=== PATIENT | female | born 1975 | race African-American/Black ===

== ENCOUNTER 2017-11-30 04:57 | Emergency (ER) | payer SELFPAY, OTHER ==
[2017-11-30 05:45] LABS: BILIRUBIN, URINE NEG (NEG); BLOOD, URINE MOD (NEG); COMMENT (UR) CULTURE INDICATED; CULTURE IF INDICATED CULTURE INDICATED; GLUCOSE,URINE NEG (NEG); KETONE, URINE NEG (NEG); NITRITE,URINE NEG (NEG); URINE LEUKOCYTE ESTERASE NEG (NEG)
[2017-11-30 05:46] LABS: URINE COLOR RED (YELLW/STRAW)
[2017-11-30] MEDS: PHENAZOPYRIDINE HCL 200 MG TAB PO (05:57)
[2017-11-30] MEDS: CEPHALEXIN MONOHYDRATE 500 MG CAP PO (05:57)
== END 2017-11-30 06:23 | disposition home or self-care (01) ==
LOC: NEPE 04:57
DX: N30.81 Other cystitis with hematuria (principal); N89.8 Other specified noninflammatory disorders of vagina; B96.20 Unspecified Escherichia coli [E. coli] as the cause of diseases classified elsewhere; Z79.899 Other long term (current) drug therapy; Z88.0 Allergy status to penicillin
CPT/HCPCS: 81001; 84703; 87077; 87086; 87186; 99284

== ENCOUNTER 2018-02-18 23:13 | Emergency (ER) | payer SELFPAY ==
[~2018-02-18] VITALS: Ht 165.1 cm; Wt 52.8 kg
[~2018-02-18 23:13] MED LIST: CEPH-460 PO; DICL75 PO; MAXA10TA2 PO; NORV2.5T11 PO; PHEN0.4T PO
[2018-02-18 23:27] VITALS: BP 148/90; PULSE 60; RESP 16; TEMP 98.3; O2SAT 100
[2018-02-19] MEDS ORDERED: MECLIZINE HCL 25 MG TAB PO ONE (00:15)
[2018-02-19] MEDS ORDERED: SODIUM CHLORIDE 0.9% FLUSH 10 ML FLUSH IV FLUSH PRN (00:15)
--- NOTE | 2018-02-19 00:20 | PD ---
HPI Chief Complaint: Dizziness Time Seen by Provider: 00:01 Travel History International Travel<30 days: No Contact w/Intl Traveler<30days: No Traveled to known affect area: No History of Present Illness HPI 42-year-old female here for evaluation of dizziness. The patient reports that at around 10:30 PM he began feeling dizzy. She reports feeling s as though she is spinning. This is made worse with movements and standing up, improved with laying still and closing her eyes. No headache. No paresthesias or motor deficits. No visual disturbances. No melena or hematochezia. No fevers or recent illness. No urinary symptoms. Family is concerned because she started a plant-based diet in June of last year and believes that this is why she is having her symptoms today. PFS Past Medical History Anxiety: Yes Cardiovascular Problems: Yes Diminished Hearing: No Headaches: Yes Hypertension: Yes Immunizations Current: Yes Migraines: Yes Tetanus Vaccination: Unknown Influenza Vaccination: No ?: Not LMP: 02/01/2018 : 0 Past Surgical History Gynecologic Surgery: Yes (PART OF THE CERVIX) Other Surgery: Yes (LUMPECTOMY RIGHT BREAST- BENIGN) Family History Family Myocardial Infarction: Yes (mother) Social History Alcohol Use: No Tobacco Use: No Substance Use: No Allergies-Medications (Allergen,Severity, Reaction): Coded Allergies: penicillin G (Unverified Allergy, Severe, 02/18/18) Reported Meds & Prescriptions Reported Meds & Active Scripts Active Pyridium (Phenazopyridine HCl) 100 Mg Tab 100 Mg PO Q8H PRN Keflex (Cephalexin) 500 Mg Cap 500 Mg PO Q8H Diclofenac Sodium Dr (Diclofenac Sod) 75 Mg Tab 75 Mg PO BID Maxalt (Rizatriptan Benzoate) 10 Mg Tab 10 Mg PO DAILYPRN FOR HEADACHE (MAXIMUM DOSAGE EQUALS 30 MG/24 HOURS) Reported Norvasc (Amlodipine Besylate) 2.5 Mg Tab 2.5 Mg PO DAILY Review of Systems Except as stated in HPI: all other systems reviewed are Neg Physical Exam Narrative GENERAL: Well-developed, well-nourished, comfortable, no acute distress. SKIN: Focused skin assessment warm/dry. HEAD: Atraumatic. Normocephalic. EYES: Pupils equal, round, 3 mm, reactive to light. EOMI. Horizontal nystagmus. No scleral icterus. No injection or drainage. ENT: No nasal bleeding or discharge. Mucous membranes pink and moist. Bilateral tympanic membrane's and external auditory canals are normal. NECK: Trachea midline. No JVD. No nuchal rigidity. CARDIOVASCULAR: Regular rate and rhythm. RESPIRATORY: No accessory muscle use. Clear to auscultation. Breath sounds equal bilaterally. GASTROINTESTINAL: Abdomen soft, non-tender, nondistended. Hepatic and splenic margins not palpable. MUSCULOSKELETAL: No obvious deformities. No clubbing. No cyanosis. No edema. NEUROLOGICAL: Awake and alert. No obvious cranial nerve deficits. Motor grossly within normal limits. Normal speech. PSYCHIATRIC: Appropriate mood and affect; insight and judgment normal. Data Data Last Documented VS Vital Signs Date Time Temp Pulse Resp B/P (MAP) Pulse Ox O2 Delivery O2 Flow Rate FiO2 02/19/18 00:21 98 Room Air 02/18/18 23:27 98.3 60 16 148/90 (109) Orders Orders Complete Blood Count With Diff (02/19/18 00:04) Comprehensive Metabolic Panel (02/19/18 00:04) Prothrombin Time / Inr (Pt) (02/19/18 00:04) Act Partial Throm Time (Ptt) (02/19/18 00:04) Urinalysis - C+S If Indicated (02/19/18 00:04) Iv Access Insert/Monitor (02/19/18 00:04) Ecg Monitoring (02/19/18 00:04) Oximetry (02/19/18 00:04) Sodium Chloride 0.9% Flush (Ns Flush) (02/19/18 00:15) Electrocardiogram (02/19/18 00:04) Ct Brain W/O Iv Contrast(Rout) (02/19/18 ) Ed Urine Pregnancytest Poc (02/19/18 00:04) Meclizine (Antivert) (02/19/18 00:15) Labs Laboratory Tests Test 02/19/18 00:26 White Blood Count 5.4 TH/MM3 Red Blood Count 3.49 MIL/MM3 Hemoglobin 11.9 GM/DL Hematocrit 33.9 % Mean Corpuscular Volume 97.1 FL Mean Corpuscular Hemoglobin 34.2 PG Mean Corpuscular Hemoglobin Concent 35.2 % Red Cell Distribution Width 12.5 % Platelet Count 176 TH/MM3 Mean Platelet Volume 9.4 FL Neutrophils (%) (Auto) 64.5 % Lymphocytes (%) (Auto) 28.1 % Monocytes (%) (Auto) 6.5 % Eosinophils (%) (Auto) 0.4 % Basophils (%) (Auto) 0.5 % Neutrophils # (Auto) 3.5 TH/MM3 Lymphocytes # (Auto) 1.5 TH/MM3 Monocytes # (Auto) 0.4 TH/MM3 Eosinophils # (Auto) 0.0 TH/MM3 Basophils # (Auto) 0.0 TH/MM3 CBC Comment DIFF FINAL Differential Comment Prothrombin Time 10.4 SEC Prothromb Time International Ratio 1.0 RATIO Activated Partial Thromboplast Time 24.5 SEC Urine Color YELLOW Urine Turbidity CLEAR Urine pH 8.5 Urine Specific Collins 1.012 Urine Protein TRACE mg/dL Urine Glucose (UA) NEG mg/dL Urine Ketones NEG mg/dL Urine Occult Blood NEG Urine Nitrite NEG Urine Bilirubin NEG Urine Urobilinogen LESS THAN 2.0 MG/DL Urine Leukocyte Esterase NEG Urine RBC LESS THAN 1 /hpf Urine WBC LESS THAN 1 /hpf Urine Squamous Epithelial Cells 1 /hpf Microscopic Urinalysis Comment CULT NOT INDICATED Blood Urea Nitrogen 7 MG/DL Creatinine 0.76 MG/DL Random Glucose 76 MG/DL Total Protein 6.4 GM/DL Albumin 3.6 GM/DL Calcium Level 8.2 MG/DL Alkaline Phosphatase 93 U/L Aspartate Amino Transf (AST/SGOT) 17 U/L Alanine Aminotransferase (ALT/SGPT) 18 U/L Total Bilirubin 0.5 MG/DL Sodium Level 143 MEQ/L Potassium Level 3.8 MEQ/L Chloride Level 110 MEQ/L Carbon Dioxide Level 30.2 MEQ/L Anion Gap 3 MEQ/L Estimat Glomerular Filtration Rate 102 ML/MIN [facility] Medical Decision Making Medical Screen Exam Complete: Yes Emergency Medical Condition: Yes Interpretation(s) EKG: Sinus, rate 61, normal axis, normal intervals, no acute ischemic abnormality. Differential Diagnosis Vertigo: Likely benign, intracranial abnormality, metabolic abnormality, anemia , UTI Narrative Course Vital signs reviewed. CBC: WBC 5.4, hemoglobin 11.9, hematocrit 33.9, platelets 176. CMP is unremarkable. Urine is negative. UA is not suggestive of UTI. CT head: CONCLUSION: No acute intracranial disease. Patient was made aware of all findings. She was given a dose of meclizine with resolution of her dizziness. Her symptoms sound like benign positional vertigo. She is stable for discharge home with outpatient follow-up with a primary care physician this week. She was advised on when to return to the emergency department. She verbalizes understanding and agreement with plan. Diagnosis Primary Impression: Vertigo Referrals: [facility] 3 days Primary Care Physician 3 days Additional Instructions: Follow-up with a primary care physician this week. Return to the emergency department for worsening symptoms or any other concerns. Scripts Meclizine (Meclizine) 25 Mg Tab 25 MG PO TID Y for VERTIGO, #20 TAB 0 Refills Prov: Raymundo Bethea MD 02/19/18 Disposition: DISCHARGE HOME Condition: Stable Raymundo Bethea MD Feb 19, 2018 00:20
[2018-02-19 00:21] VITALS: O2SAT 98
[2018-02-19 00:38] LABS: BILIRUBIN, URINE NEG (NEG); BLOOD, URINE NEG (NEG); GLUCOSE,URINE NEG (NEG); KETONE, URINE NEG (NEG); NITRITE,URINE NEG (NEG); PH, URINE 8.5 (5.0-8.5); SQUAMOUS EPITHELIAL CELL URINE 1 /hpf (0-5); URINE COLOR YELLOW (YELLW/STRAW); URINE LEUKOCYTE ESTERASE NEG (NEG)
[2018-02-19 00:46] LABS: AUTOMATED NEUTROPHIL # 3.5 TH/MM3 (1.8-7.7); BASOPHIL % 0.5 % (0.0-2.0); EOSINOPHIL % 0.4 % (0.0-4.0); HEMATOCRIT 33.9 % (35.0-46.0); HEMOGLOBIN 11.9 GM/DL (11.6-15.3); LYMPH % 28.1 % (9.0-44.0); LYMPHOCYTE # 1.5 TH/MM3 (1.0-4.8); MEAN CELL VOLUME 97.1 FL (80.0-100.0); MEAN CORPUSCULAR HEMOGLOBIN 34.2 PG (27.0-34.0); MEAN CORPUSCULAR HGB CONC 35.2 % (32.0-36.0); MEAN PLATELET VOLUME 9.4 FL (7.0-11.0); MONO % 6.5 % (0.0-8.0); MONOCYTE # 0.4 TH/MM3 (0-0.9); NEUT % 64.5 % (16.0-70.0); PLATELET COUNT 176 TH/MM3 (150-450); RED BLOOD COUNT 3.49 MIL/MM3 (4.00-5.30); RED CELL DISTRIBUTION WIDTH 12.5 % (11.6-17.2); WHITE BLOOD COUNT 5.4 TH/MM3 (4.0-11.0)
[2018-02-19 00:51] LABS: PROTHROMBIN TIME - PATIENT 10.4 SEC (9.8-11.6)
[2018-02-19 00:53] LABS: ALBUMIN 3.6 GM/DL (3.4-5.0); ALT (GPT) 18 U/L (10-53); AST (GOT) 17 U/L (15-37); BICARBONATE 30.2 MEQ/L (21.0-32.0); BLOOD UREA NITROGEN 7 MG/DL (7-18); CALCIUM 8.2 MG/DL (8.5-10.1); CHLORIDE 110 MEQ/L (98-107); CREATININE 0.76 MG/DL (0.50-1.00); GLOMERULAR FILTRATION RATE 102 ML/MIN (>89); GLUCOSE,RANDOM 76 MG/DL (74-106); SODIUM (NA) 143 MEQ/L (136-145)
[2018-02-19 00:55] LABS: ALKALINE PHOSPHATASE 93 U/L (45-117); TOTAL BILIRUBIN ADULT 0.5 MG/DL (0.2-1.0); TOTAL PROTEIN 6.4 GM/DL (6.4-8.2)
--- NOTE | 2018-02-19 01:18 | RADRPT ---
EXAM DATE/TIME: 02/19/2018 00:43 [place] COMPARISON: No previous studies available for comparison. INDICATIONS : Dizziness. RADIATION DOSE: 56.35 CTDIvol (mGy) MEDICAL HISTORY : None SURGICAL HISTORY : None. ENCOUNTER: Initial ACUITY: 1 day PAIN SCALE: 0/10 LOCATION: cranial TECHNIQUE: Multiple contiguous axial images were obtained of the head. Using automated exposure control and adj ustment of the mA and/or kV according to patient size, radiation dose was kept as low as reasonably a chievable to obtain optimal diagnostic quality images. DICOM format image data is available electro nically for review and comparison. FINDINGS: CEREBRUM: The ventricles are normal for age. No evidence of midline shift, mass lesion, hemorrhage or acute in farction. No extra-axial fluid collections are seen. POSTERIOR FOSSA: The cerebellum and brainstem are intact. The 4th ventricle is midline. The cerebellopontine angle i s unremarkable. EXTRACRANIAL: The visualized portion of the orbits is intact. SKULL: The calvaria is intact. No evidence of skull fracture. CONCLUSION: No acute intracranial disease. German Quijano MD on February 19, 2018 at 1:15 Board Certified Radiologist. This report was verified electronically.
[2018-02-19] MEDS ORDERED: MECL-62 PO (01:34)
--- NOTE | 2018-02-19 18:52 | EKG ---
Date Performed: 02/19/2018 Time Performed: 00:17:10 PTAGE: 42 years EKG: Sinus rhythm NORMAL ECG Since the PREVIOUS TRACING , no significant change noted PREVIOUS TRACIN08/24/2012 11.42 DOCTOR: Paresh Chavez Interpretating Date/Time 02/19/2018 18:48:00
== END 2018-02-19 02:03 | disposition home or self-care (01) ==
LOC: NEPC 23:13
DX: R42 Dizziness and giddiness (principal); F41.9 Anxiety disorder, unspecified; I10 Essential (primary) hypertension; Z79.899 Other long term (current) drug therapy; Z88.0 Allergy status to penicillin
CPT/HCPCS: 70450; 80053; 81001; 84703; 85025; 85610; 85730; 93005; 99285